=== PATIENT | male | born 1990 | race Caucasian/White ===

== ENCOUNTER 2017-04-15 11:49 | Emergency (ER) | payer OTHER ==
[~2017-04-15] VITALS: Wt 99.8 kg
[~2017-04-15 11:49] MED LIST: Motrin,Rufen800 MG PO; Zofran4 MG PO
[2017-04-15] MEDS ORDERED: PREDNISONE10 MG PO (12:58)
[2017-04-15] MEDS ORDERED: LIDEX 0.05% CRE15 GM T (12:58)
== END 2017-04-15 13:04 | disposition home or self-care (01) ==
LOC: ED 11:49
DX: L25.5 Unspecified contact dermatitis due to plants, except food (principal); F17.200 Nicotine dependence, unspecified, uncomplicated; Z88.0 Allergy status to penicillin

== ENCOUNTER 2019-08-29 14:04 | Emergency (ER) | payer OTHER ==
[~2019-08-29] VITALS: Ht 177.8 cm; Wt 127.0 kg
[~2019-08-29 14:04] MED LIST changes: +INDOMETHACIN50 MG PO; +LIDEX 0.05% CRE15 GM T; +PREDNISONE10 MG PO
[2019-08-29] MEDS ORDERED: ZITHROMAX250 MG PO (16:15)
== END 2019-08-29 16:21 | disposition home or self-care (01) ==
LOC: ED 14:04
DX: J40 Bronchitis, not specified as acute or chronic (principal); F17.200 Nicotine dependence, unspecified, uncomplicated; Z88.0 Allergy status to penicillin

== ENCOUNTER → 2022-02-19 | Outpatient (CLI) | payer OTHER ==
[~2022-02-19] MED LIST changes: +ZITHROMAX250 MG PO
[2022-02-19 14:38] LABS: BASO % 0.2 % (0.0-1.0); EOS # 0.2 10*3/uL (0.0-0.4); EOS % 1.8 % (1.0-4.0); HEMATOCRIT 44.7 % (42.0-52.0); LYMPH # 2.2 10*3/uL (1.3-4.4); LYMPH % 26.4 % (27.0-41.0); MEAN CELL VOLUME 84.3 fl (80.0-94.0); MEAN CORPUSCULAR HGB 30.2 pg (27.0-31.0); MEAN CORPUSCULAR HGB CONC 35.8 g/dl (33.0-37.0); MEAN PLATELET VOLUME 10.8 fl (9.6-12.3); MONO # 0.4 10*3/uL (0.1-1.0); MONO % 5.2 % (3.0-9.0); NEUT # 5.4 10*3/uL (2.3-7.9); NEUT % 65.7 % (47.0-73.0); PLATELET COUNT AUTOMATED 178 10*3/uL (130-400); RED CELL DISTRI WIDTH 11.9 % (0-14.5); RETICULOCYTE % 2.44 % (0.50-2.50); WHITE BLOOD COUNT 8.3 10*3/uL (4.8-10.8)
[2022-02-19 14:44] LABS: BILIRUBIN Negative (Negative); BLOOD Negative (Negative); CLARITY Clear (Clear); COLOR Yellow (Yellow); GLUCOSE 2+ (Negative); KETONE Trace (Negative); LEUKO ESTERASE Negative (Negative); NITRITE Negative (Negative); PH 5.5 (4.5-8.0); UROBILINOGEN 0.2 E.U./dl (0.0-1.0)
[2022-02-19 14:54] LABS: MUCOUS 3+
[2022-02-19 14:55] LABS: BACTERIA 2+; EPITHELIAL CELLS 0-2
[2022-02-19 14:58] LABS: ALKALINE PHOSPHATASE 71 U/L (45-117); BUN 10 mg/dl (7-24); CHLORIDE 103 mmol/L (98-107); CHOLESTEROL 184 mg/dL (<200); CREATININE 0.84 mg/dL (0.70-1.30); GAMMA GLUTAMYL TRANSPEPTIDASE 106 U/L (15-85); IRON 78 ug/dL (65-175); LDL CHOLESTEROL 93 mg/dL (9-159); POTASSIUM 4.1 mmol/L (3.5-5.1); SGOT/AST 60 IU/L (3-35); SGPT/ALT 117 U/L (12-78); SODIUM 138 mmol/L (136-145); T3 UPTAKE 36 % (31-39); THYROXINE (T4) TOTAL 7.3 ug/dl (4.5-12.1); TOTAL PROTEIN 7.3 gm/dL (6.4-8.2); TRIGLYCERIDES 289 mg/dl (<150)
[2022-02-19 15:04] LABS: TOTAL IRON BINDING CAPACITY 339 ug/dl (250-450)
[2022-02-19 15:09] LABS: VITAMIN D, 25-HYDROXY 17.9 ng/mL (30-100)
[2022-02-19 15:10] LABS: FERRITIN 260.6 ng/mL (22.0-322.0)
== END | disposition home or self-care (01) ==
LOC: LAB 14:17
PROVIDERS: ATTEND Family Medicine
DX: E11.9 Type 2 diabetes mellitus without complications (principal); E78.5 Hyperlipidemia, unspecified; R79.89 Other specified abnormal findings of blood chemistry; R53.83 Other fatigue; E55.9 Vitamin D deficiency, unspecified